=== PATIENT | female | born 1990 | race African-American/Black ===

== ENCOUNTER 2018-01-31 17:32 | Emergency (ER) | payer OTHER ==
[~2018-01-31] VITALS: Ht 177.8 cm; Wt 90.7 kg
[2018-01-31 17:45] VITALS: BP 161/79
--- NOTE | 2018-01-31 18:09 | PHYS DOC ---
Past History Past Medical History: No Pertinent History Past Surgical History: No Surgical History Alcohol Use: Occasionally Drug Use: None Adult General Chief Complaint Chief Complaint: COUGH HPI HPI Patient is a 27-year-old female who presents with complaint of cough and chest congestion that started 2 days ago. She indicates that at times it feels like she is just not able to get enough breath in. She also indicates that she has some soreness on her chest that she rates at a 5 or 6. She indicates that her cough has been dry. She denies any leg pain or swelling. She denies tobacco use. Patient denies any family history of blood clots. Dates that symptoms of cough and shortness breath are worsened with exertion. She denies any fever. Review of Systems Review of Systems Constitutional: Denies fever or chills [] HENT: Admits to nasal congestion[] Respiratory: Complains of cough and shortness of breath [] Cardiovascular: Complains of chest soreness[] GI: Denies abdominal pain, nausea, vomiting or diarrhea [] All other systems were reviewed and found to be within normal limits, except as documented in this note. Physical Exam Physical Exam Constitutional: Well developed, well nourished, no acute distress, non-toxic appearance. [] HENT: Normocephalic, atraumatic, bilateral external ears normal, oropharynx moist, no oral exudates, nose normal. [] Eyes: PERRLA, EOMI, conjunctiva normal, no discharge. [] Neck: Normal range of motion, no tenderness, supple, no stridor. [] Cardiovascular:Heart rate regular rhythm [] Lungs & Thorax: Bilateral breath sounds clear to auscultation [] Abdomen: Bowel sounds normal, soft. [] Skin: Warm, dry, no erythema, no rash. [] Extremities: No tenderness, no cyanosis, no clubbing, ROM intact, no edema. [] Neurologic: Alert and oriented X 3, normal motor function, normal sensory function, no focal deficits noted. [] Current Patient Data Vital Signs Vital Signs Date Time Temp Pulse Resp B/P (MAP) Pulse Ox O2 Delivery O2 Flow Rate FiO2 01/31/18 17:45 97.6 78 18 98 Room Air EKG EKG EKG demonstrates normal sinus rhythm with no ST segment abnormalities.[] Radiology/Procedures Radiology/Procedures [] Impressions: Two-view chest x-ray demonstrates no acute process. Course & Med Decision Making Course & Med Decision Making Pertinent Labs and Imaging studies reviewed. (See chart for details) [] Dragon Disclaimer Dragon Disclaimer This electronic medical record was generated, in whole or in part, using a voice recognition dictation system. Departure Departure: Impression: Primary Impression: Acute bronchitis Disposition: HOME, SELF-CARE Condition: STABLE Referrals: PCP,NO (PCP) Patient Instructions: Acute Bronchitis Scripts Benzonatate (TESSALON PERLE) 100 Mg Capsule 1 CAP PO TID PRN for COUGH, #21 CAP Prov: BERTA YIP Jr. DO 01/31/18 Azithromycin (ZITHROMAX) 250 Mg Tablet 1 PKG PO UD for infection, #6 TAB Prov: BERTA YIP Jr. DO 01/31/18 Problem Qualifiers Primary Impression: Acute bronchitis Bronchitis organism: unspecified organism Qualified Codes: J20.9 - Acute bronchitis, unspecified BERTA YPI Jr. DO Jan 31, 2018 18:09
--- NOTE | 2018-01-31 18:17 | EKG ---
[address] [address] Test Date: 2018-01-31 Test Time: 18:15:14 Pat Name: ADRIANA OSMAN Department: Room: Gender: F Acting Professor: : 1990 Requested By: BERTA YIP Order Number: [id number] Reading MD: Ashok Griffith MD Measurements Intervals [place] Rate: 65 P: 47 [place]: 206 QRS: 55 QRSD: 76 T: 43 QT: 404 QTc: 421 Interpretive Statements SINUS RHYTHM Electronically Signed On 02-03-2018 9:24:13 POLITICAL SCIENCE RESEARCH ASSISTANT by Ashok Griffith MD
[2018-01-31] MEDS ORDERED: BENZ100C PO (19:08)
[2018-01-31] MEDS ORDERED: AZIT250T PO (19:08)
--- NOTE | 2018-01-31 20:05 | RAD ---
CHEST PA LATERAL dated 01/31/2018 7:45 PM. Comparison: None. Clinical Indication: Cough, congestion, COUGH Findings: PA and lateral views of the chest were obtained. Heart and mediastinal contours within normal limits. Lungs are clear without focal consolidation. Vascular interstitium within normal limits. No pleural effusion or pneumothorax. Impression: No acute radiographic abnormality. Electronically signed by: Rodger Gallardo MD (01/31/2018 8:02 PM) [facility]
== END 2018-01-31 19:10 | disposition home or self-care (01) ==
LOC: ER 17:32
DX: J20.9 Acute bronchitis, unspecified (principal)
CPT/HCPCS: 71046; 81025; 93005; 99284

== ENCOUNTER 2019-11-09 20:01 | Emergency (ER) | payer OTHER, BC ==
[~2019-11-09] VITALS: Ht 177.8 cm; Wt 100.0 kg
[~2019-11-09 20:01] MED LIST: AZIT250T PO; BENZ100C PO
[2019-11-09] MEDS ORDERED: DEXAMETHASONE 4 MG TABLET PO ONE (20:45)
[2019-11-09] MEDS ORDERED: ORPHENADRINE CITRATE 60 MG/2 ML VIAL. IV ONE (20:45)
[2019-11-09 21:00] LABS: BASO % 0 % (0-3); EOS % 0 % (0-3); HEMOGLOBIN 11.5 g/dL (12.0-15.5); LYMPH # 2.1 x10^3/uL (1.0-4.8); LYMPH % 59 % (24-48); MEAN CORPUSCULAR HEMOGLOBIN 37 pg (25-35); MEAN CORPUSCULAR HGB CONC 34 g/dL (31-37); MEAN CORPUSCULAR VOLUME 110 fL (79-100); MONO # 0.3 x10^3/uL (0.0-1.1); MONO % 8 % (0-9); NEUT # 1.2 x10^3uL (1.8-7.7); NEUT % 33 % (31-73); PLATELET COUNT 35 x10^3/uL (140-400); RED BLOOD COUNT 3.09 x10^6/uL (3.50-5.40); RED CELL DISTRIBUTION WIDTH 15.6 % (11.5-14.5); WHITE BLOOD COUNT 3.6 x10^3/uL (4.0-11.0)
[2019-11-09 21:27] LABS: PLT ESTIMATE DECREASED (ADEQUATE)
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
[2019-11-09] MEDS ORDERED: ORPH-16 PO (22:51)
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
[2019-11-09 23:01] VITALS: BP 102/60
== END 2019-11-09 23:02 | disposition home or self-care (01) ==
LOC: ER 20:01
DX: S16.1XXA Strain of muscle, fascia and tendon at neck level, initial encounter (principal); S39.012A Strain of muscle, fascia and tendon of lower back, initial encounter; V47.5XXA Car driver injured in collision with fixed or stationary object in traffic accident, initial encounter; Y93.I9 Activity, other involving external motion; Y92.488 Other paved roadways as the place of occurrence of the external cause; Y99.8 Other external cause status
CPT/HCPCS: 36415; 70450; 72125; 81025; 85025; 85610; 85730; 96374; 99285; J2360; J8540

== ENCOUNTER 2019-11-28 03:08 | Emergency (ER) | payer BC, OTHER ==
[~2019-11-28] VITALS: Ht 177.8 cm; Wt 105.0 kg
[~2019-11-28 03:08] MED LIST changes: +ORPH-16 PO
--- NOTE | 2019-11-28 03:13 | PHYS DOC ---
Past History Past Medical History: Other Additional Past Medical Histor: low platelets Past Surgical History: No Surgical History Alcohol Use: Occasionally Drug Use: None Adult General HPI HPI Patient is a 29-year-old female who presents for possible COVID. Patient reports URI-like symptoms and generalized malaise which started today without any known inciting event. Patient reports being more tired than usual performing activities of daily living, has rhinorrhea and a dry nonproductive cough. She denies any known COVID-19 exposure but works at local [employer] and is exposed daily to the general public, no fevers, no chest pain, no shortness of breath, no abdominal pain, no changes in bladder or bowel function, no spontaneous bleeding or known blood loss in urine or stool. Patient has history of ITP and follows at [facility]. She gets serial lab work performed weekly that is all been stable with last check 4 days ago. She has history of vitamin B12 deficiency and is pending restart of IM B12 supplementation. Review of Systems Review of Systems Fourteen body systems of review of systems have been reviewed. See HPI for pertinent positives and negative responses, other de la rosa all other systems are negative, non-pertinent or non-contributory Allergies Allergies Allergies Coded Allergies Type Severity Reaction Last Updated Verified No Known Drug Allergies 11/09/19 No Physical Exam Physical Exam Constitutional: Well developed, well nourished, no acute distress, non-toxic appearance. HENT: Normocephalic, atraumatic, bilateral external ears normal, bilateral tympanic membranes and other portions of middle ear without any obvious signs of acute disease, postnasal drip present, oropharynx moist, no oral exudates, external nose unremarkable, mildly engorged bilateral nasal turbinates, no rhinorrhea present Eyes: PERRLA, EOMI, conjunctiva normal, no discharge. Neck: Normal range of motion, no tenderness, supple, no stridor. Cardiovascular: Heart rate regular, sinus rhythm, no murmurs rubs or gallops Lungs & Thorax: Bilateral breath sounds clear to auscultation Abdomen: Bowel sounds normal, soft, no tenderness, no masses, no pulsatile masses. Nonsurgical abdomen, no peritoneal signs Skin: Warm, dry, no erythema, no rash. Back: No tenderness, no CVA tenderness. Extremities: No tenderness, no cyanosis, no clubbing, ROM intact, no edema. Neurologic: Alert and oriented X 3, grossly normal motor & sensory function, no focal deficits noted. Psychologic: Affect normal, judgement normal, mood normal. EKG EKG [] Radiology/Procedures Radiology/Procedures [] Course & Med Decision Making Course & Med Decision Making Well-appearing ambulatory patient seen on immediate ER arrival ABCs non-concerning, patient afebrile Comprehensive history and physical examination performed, no obvious emergent and/or surgical findings present Discussed limited utility in further laboratory and/or imaging studies given comprehensive clinical examination, PERC negative I discussed most likely diagnosis of viral syndrome but could not definitively exclude COVID-19. I offered patient COVID-19 test today and she was agreeable. I also feel the patient's history of vitamin B 12 deficiency is contributory. She is unsure if her thyroid or vitamin D levels have been checked in outpatient setting I educated patient on supportive care practices for likely diagnosis. I also disclosed this might be an acute presentation of more concerning pathology given patient's weakened immune system. Strict return precautions were discussed with good understanding by patient, all questions and concerns addressed prior to ER departure in stable condition with continued supportive care, self quarantine instructions, and subsequent follow- up with outpatient physicians advised Fouzia Disclaimer Dragangel Disclaimer This electronic medical record was generated, in whole or in part, using a voice recognition dictation system. PERC Rule for PE PERC Rule for PE Response (Comments) Value Age > 50: No 0 HR > 100: No 0 Sa02 on room air <95%: No 0 Unilateral leg swelling: No 0 Hemoptysis: No 0 Recent surgery or trauma: No 0 Prior PE or DVT: No 0 Hormone use: No 0 Total 0 Departure Departure: Impression: Primary Impression: Malaise Additional Impressions: Viral syndrome Person under investigation for COVID-19 Disposition: 01 HOME/RESIDENCE PRIOR TO ADM Condition: STABLE Referrals: VIKKI UGZMAN DO (PCP) Additional Instructions: Short You were evaluated in the Emergency Department today for a cough. Your evaluation suggests a viral infection such as Coronavirus. It is important that you continue to self isolate and practice good hygiene at home. Please follow up with your primary care physician as discussed. Return to the Emergency Department if you experience worsening cough, fever, shortness of breath, recurrent vomiting, lethargy, or any other concerning symptoms. Thank you for choosing us for your care. Home Care Instructions for Patients with Mild Respiratory Infection Most people with respiratory infections like colds, the flu, and Coronavirus Disease (COVID-19) will have mild illness and can get better with appropriate home care and without the need to see a provider. People who are elderly, , or have a weak immune system, or other medical problem are at higher risk of more serious illness or complications. It is recommended that they carefully monitor their symptoms closely and seek medical care early if their symptoms get worse. TREATMENT AND MEDICAL CARE Treatment There is no specific treatment for most viruses including those that that cause the common cold and those that cause COVID-19. Sometimes there is treatment for the viruses that cause influenza if given early. Antibiotics treat infections caused by bacteria, but they do not work against viruses.Most people recover on their own from these viruses, including COVID-19. Here are steps that you can take to help you get better: Rest Drink plenty of fluids Take nivy-nzd-lsjoenp cold and flu medications to reduce fever and pain. Follow the instructions on the package, unless your doctor gave you instructions. Note that these medicines do not ``cure the illness and therefore do not stop you from spreading germs. Children should not be given medication that contains aspirin (acetylsalicylic acid) because it can cause a rare but serious illness called Eusebio syndrome. Medicines without aspirin include acetaminophen (Tylenol) and ibuprofen (A dvil, Motrin). Children younger than age 2 should not be given any vwcq-kpr-jgqsukv cold medications without first speaking with a doctor.Seeking Medical Care You should seek medical care if you are not getting better within a week, or if your symptoms get worse. If you are elderly, , have a weak immune system, or other medical problems, call your doctor right away. It is best to call ahead of time to discuss your symptoms, if possible. This may allow you to receive the advice you need by phone. By avoiding a visit to a healthcare facility, you protect yourself from getting a new infection and protect others from catching an infection from you. If you do visit a healthcare facility, put on a mask to protect other patients and staff. It is recommended that you seek medical care for serious symptoms, such as: People with potentially life-threatening symptoms should call 911. If possible, put on a facemask before emergency medical services arrive.PROTECTING OTHERS Follow the steps below to help prevent the disease from spreading to people in your home and community.Stay home when you are sick Stay home - do not go to work, school, or public areas. Stay home for at least 24 hours after your symptoms have gone away without the use of fever-reducing medicines. If you must leave home while you are sick, try to avoid using public transportation, ride-shares, and taxis. Wear a mask if possible. Separate yourself from other people and animals in your home Stay in a specific room and away from other people in your home as much as possible. Use a separate bathroom, if available. Try to stay at least 6 feet from others. Do not handle pets or other animals while you are sick. Cover your coughs and sneezes Cover your mouth and nose with a tissue when you cough or sneeze. Throw used tissues in a lined trash can; immediately wash your hands. Avoid sharing personal household items Do not share dishes, drinking glasses, cups, eating utensils, towels, or bedding with other people or pets in your home. Wash them thoroughly with soap and water after use. Clean your hands often Wash your hands often with soap and water for at least 20 seconds. If soap and water are not available, clean your hands with an alcohol-based hand license inspector that contains at least 60% alcohol, covering all surfaces of your hands and rubbing them together until they feel dry. Use soap and water if your hands are visibly dirty. Clean all ``high-touch surfaces every day High touch surfaces include counters, tabletops, doorknobs, bathroom fixtures, toilets, phones, keyboards, tablets, and bedside tables. Also, clean any surfaces that may have body fluids on them. Use a household cleaning spray or wipe, according to the product label instructions. COVID-19 (Novel Coronavirus) FAQs for Inquiring Patients What do you do if you are worried that you have been exposed to COVID-19 but are without any symptoms? If you develop symptoms that may indicate an infection, contact your physician. These include fever, cough, and shortness of breath. Testing is not available for asymptomatic individuals, regardless of travel history. To reduce the chance of getting sick use general infection prevention measures such as hand washing, covering your mouth and nose when you cough or sneeze and discarding any tissues carefully, and staying home when you are sick.Can exceptions be made for patients who are really worried and want to be tested? Presently testing is only available through the [facility] Department of Public Health and Centers for Disease Control and Prevention. Only patients who meet the updated COVID-19 PUI definition may be tested. We do not control or set the PUI definition or evaluation criteria. We are unable to provide testing to patients who do not meet the strict criteria. Should patients cancel or postpone an upcoming trip? The decision about travel is personal and should be made in the context of a persons underlying health conditions, reason for travel and necessity of travel. Travel insurance generally does not cover cancellations due to concerns of infectious disease outbreaks. The Center for Disease Control has a section on travel notices. Situations are changing frequently and you should monitor the site for updates. Should situations change rapidly in a foreign country while they are traveling, you could be subject to quarantine or restrictions upon return to the [place]. It is best to have a plan on how to return urgently if needed during a trip abroad. Because of how air circulates and is filtered on airplanes, most viruses do not spread easily on airplanes. CDC does not recommend use of facemasks during air travel.What other general precautions are advised? Patients should be instructed to: Avoid close contact with people who are sick. Avoid touching your eyes, nose and mouth. Stay home from work or school when they are sick. If you have a fever, you should remain home until 24 hours after fever resolves. Clean and disinfect frequently touched objects and surfaces using a regular household cleaning spray or wipe. Sneeze/cough into their elbow, not your hand. Practice frequent hand hygiene with soap and water (at least 20 seconds) or alcohol-based hand rub. Consider avoiding crowded places or mass gatherings, especially if you are immunocompromised or have chronic lung disease. There is no evidence to support transmission of COVID-19 from goods imported from [place]. Are there any special precautions that are recommended if I am ? There is not yet any information available about the susceptibility of women to COVID-19. As a general rule, women may be more susceptible to viral respiratory infections and at risk for more severe illness. The CDC guidance for COVID-19 and has answers to questions about transmission during delivery, as well as other situations. Should food, water, or medications be stockpiled? Should people telecommute? The CDC has excellent information on this. Please visit the CDCs guidance for getting your household ready for COVID-19. What should I do if I start feeling sick at work? And what should the workplace do for anyone exposed? Anyone who is sick with a fever and cough should stay home from work until at least 24 hours after resolution of fever, regardless of concerns for COVID-19. It is still influenza (flu) season and influenza remains far more common. Justification of Admission: Justification of Admission: Justification of Admission Dx: N/A Problem Qualifiers GORDON POPE DO Nov 28, 2019 03:13
[2019-11-28 03:45] VITALS: BP 164/80
--- NOTE | 2019-11-30 08:55 | NUR ---
IP: notified patient of COVID results, discussed precautions.
== END 2019-11-28 03:45 | disposition home or self-care (01) ==
LOC: ER 03:08
DX: U07.1 COVID-19 (principal); B34.9 Viral infection, unspecified
CPT/HCPCS: 99283; C9803; U0003